=== PATIENT | female | born 1960 | race Caucasian/White ===

== ENCOUNTER 2020-06-17 11:48 | Emergency (ER) | payer MEDICARE ==
[~2020-06-17] VITALS: Ht 144.8 cm; Wt 116.1 kg
--- NOTE | 2020-06-17 12:30 | NUR ---
LIDIA VALDIVIA AT .
[2020-06-17 12:51] LABS: BASOPHILS # (AUTO) 0.03 x10^3/uL (0-0.1); BASOPHILS % (AUTO) 0 % (0-1); EOSINOPHILS # (AUTO) 0.19 x10^3/uL (0-0.4); EOSINOPHILS % (AUTO) 3 % (1-7); LYMPHOCYTES # (AUTO) 2.55 x10^3/uL (1-3.4); LYMPHOCYTES % (AUTO) 36 % (22-44); MD NO; MEAN CORPUSCULAR HEMOGLOBIN 25.7 pg (27.0-34.8); MEAN CORPUSCULAR VOLUME 80.3 fL (80-100); MEAN PLATELET VOLUME 8.2 fL (7.4-10.4); MONOCYTES # (AUTO) 0.48 x10^3/uL (0.2-0.8); MONOCYTES % (AUTO) 7 % (2-9); NEUTROPHILS # (AUTO) 3.81 x10^3/uL (1.8-6.8); NEUTROPHILS % (AUTO) 54 % (42-75); PLATELET COUNT 290 x10^3/uL (130-400); RED BLOOD COUNT 5.08 x10^6/uL (3.82-5.3); RED CELL DISTRIBUTION WIDTH 14.3 % (9.6-15.2)
[2020-06-17] MEDS ORDERED: SODIUM CHLORIDE FLUSH 10ML SYR IVF ONE (13:00)
[2020-06-17 13:03] LABS: ALANINE AMINOTRANSFERASE 20 U/L (12-78); ALBUMIN 3.8 g/dL (3.4-5.0); ANION GAP 6 mmol/L (5-15); CALCIUM 9.2 mg/dL (8.5-10.1); CHLORIDE 108 mmol/L (98-107); CREATININE 0.59 mg/dL (0.55-1.02)
[2020-06-17 13:05] LABS: ALKALINE PHOSPHATASE 123 U/L (45-117); BILIRUBIN,TOTAL 0.9 mg/dL (0.2-1.0)
--- NOTE | 2020-06-17 13:34 | NUR ---
PT TO CT VIA [facility].
--- NOTE | 2020-06-17 13:49 | NUR ---
PT RETURNS FROM CT.
[2020-06-17] MEDS ORDERED: OMNIPAQUE 350 MG/ML, 100ML BOTTLE ONE (13:51)
--- NOTE | 2020-06-17 13:53 | NUR ---
PT AMBULATED TO BR WITH CANE.
[2020-06-17 15:05] VITALS: BP 103/64
--- NOTE | 2020-06-17 15:34 | NUR ---
ALL PT'S QUESTIONS ANSWERED. D/C INSTRUCTIONS & F/U APPT RV'WD WITH PT, SHE VERBALIZES UNDERSTANDING. ASSISTED OUT OF ED VIA WC WITH CANE. PT STATES HER DAUGHTER WILL PICK HER UP.
== END 2020-06-17 15:35 | disposition home or self-care (01) ==
LOC: ED 13:24
DX: K42.9 Umbilical hernia without obstruction or gangrene (principal); I10 Essential (primary) hypertension
CPT/HCPCS: 36415; 74177; 80053; 85025; 99285; Q9967

== ENCOUNTER → 2020-07-27 | Outpatient (CLI) | payer MEDICARE ==
[~2020-07-27] MED LIST: AMLO10TA8 PO; GINGER PO; HYDROCHLORIDE PO; MELA10TA PO; TURMERIC PO
[2020-07-27 12:42] LABS: ANION GAP 6 mmol/L (5-15); CALCIUM 9.5 mg/dL (8.5-10.1); CHLORIDE 106 mmol/L (98-107)
[2020-07-27 12:50] LABS: ALANINE AMINOTRANSFERASE 20 U/L (12-78); ALBUMIN 3.7 g/dL (3.4-5.0); ALKALINE PHOSPHATASE 113 U/L (45-117); BILIRUBIN,TOTAL 0.6 mg/dL (0.2-1.0); CREATININE 0.56 mg/dL (0.55-1.02); TOTAL PROTEIN 8.1 g/dL (6.4-8.2)
== END | disposition home or self-care (01) ==
LOC: STAR 11:01
PROVIDERS: ATTEND Internal Medicine Gastroenterology
DX: Z01.812 Encounter for preprocedural laboratory examination (principal); Z20.828 Contact with and (suspected) exposure to other viral communicable diseases
CPT/HCPCS: 36415; 80053; 87635

== ENCOUNTER 2020-07-31 07:16 | Day surgery (SDC) | payer MEDICARE ==
[~2020-07-31] VITALS: Ht 147.3 cm; Wt 116.1 kg
[2020-07-31] MEDS ORDERED: CHLORHEXIDINE 15 ML UDC MM STA (07:35)
[2020-07-31] MEDS ORDERED: LACTATED RINGERS 1,000 ML IV SCH (08:06)
[2020-07-31 08:17] VITALS: BP 138/84
[2020-07-31] MEDS ORDERED: FENTANYL PF 100 MCG/2ML ONE (09:18)
[2020-07-31] MEDS ORDERED: MIDAZOLAM 1 MG/ML, 2ML ONE (09:18)
[2020-07-31] MEDS ORDERED: EPHEDRINE 50 MG/ML, 1ML ONE (09:26)
[2020-07-31] MEDS ORDERED: PROPOFOL 10 MG/ML, 20ML ONE (09:51)
[2020-07-31] MEDS ORDERED: PROMETHAZINE 25 MG/ML, 1ML IVPush PRN (10:00)
[2020-07-31] MEDS ORDERED: ONDANSETRON 2MG/ML, 2ML IVPush PRN (10:00)
[2020-07-31] MEDS ORDERED: MEPERIDINE/PF 25MG/0.5ML IVPush PRN (10:00)
[2020-07-31] MEDS ORDERED: LABETALOL 5MG/ML, 20ML IV PRN (10:00)
[2020-07-31] MEDS ORDERED: FENTANYL PF 100 MCG/2ML IV PRN (10:00)
[2020-07-31] MEDS ORDERED: HYDROmorphone 1 MG/ML, 1ML INJ IVPush PRN (10:00)
[2020-07-31] MEDS ORDERED: HYDROcodone/APAP 7.5-325MG/15ML UDC PO PRN (10:00)
[2020-07-31] MEDS ORDERED: hydrALAzine 20 MG/ML, 1ML IV PRN (10:00)
== END 2020-07-31 11:40 | disposition home or self-care (01) ==
LOC: OUT 07:16
PROVIDERS: ATTEND Internal Medicine Gastroenterology
DX: R19.5 Other fecal abnormalities (principal); D12.4 Benign neoplasm of descending colon; K57.30 Diverticulosis of large intestine without perforation or abscess without bleeding; K64.8 Other hemorrhoids; I10 Essential (primary) hypertension; Z79.02 Long term (current) use of antithrombotics/antiplatelets; Z79.899 Other long term (current) drug therapy; Z90.49 Acquired absence of other specified parts of digestive tract; Z98.84 Bariatric surgery status
CPT/HCPCS: 45385; 88305; J2250; J2704; J3010; J7120